=== PATIENT | female | born 1985 | race Caucasian/White ===

== ENCOUNTER 2017-05-01 12:05 | Emergency (ER) | payer OTHER ==
[~2017-05-01] VITALS: Ht 157.5 cm; Wt 90.9 kg
--- NOTE | ~2017-05-01 | CR252 ---
[facility]. [facility] A Service of [facility] & [facility] RADIOLOGY TEXT RESULTS PATIENT: BETY SUBRAMANIAN LOCATION: SED : 89 UNIT #: [id number] AGE: [address]: Ulysses Weiss MD SEX: F ORDER DR: [id number] [place] [id number] E MR#: [id number] #: [id number] NAME: BETY SUBRAMANIAN : 1985 SEX: F STUDY DATE/TIME: 05/01/2017 12:34 UNIT: SED ROOM: STUDY DESCRIPTION: CR Tibia and Fibula 2 Views Lt Attending Physician: Ulysses Weiss M.D. Ordering Physician: Ulysses Weiss M.D. Primary Care Physician: Primary Care Physician No MEDICAL IMAGING REPORT This report is preliminary unless electronic signature is present. EXAM Left tib-fib series INDICATION Left leg laceration after a fall today. PROCEDURE Two views of the left leg. COMPARISON None. FINDINGS Soft tissue laceration along the anterior lower left leg. No acute bone injury. IMPRESSION Laceration along the anterior lower left leg. No acute bone injury. Dictated by... Maverick Pearce M.D. THIS IS AN ELECTRONICALLY VERIFIED REPORT Maverick Pearce M.D. at 05/02/2017 8:15 AM JERILYN/winston TD: 05/01/2017 13:47 JOB #: [id number] MEDICAL IMAGING REPORT Page 1 of 1
[~2017-05-01 12:05] MED LIST: BENADRYL25 M1 PO; BIRTH CONTROL PILL PO; MOTRIN600 M2 PO; REGLAN10 MG PO
[2017-05-01] MEDS ORDERED: NO MEDICATIONS (12:09)
== END 2017-05-01 13:20 | disposition home or self-care (01) ==
LOC: SED 12:05
DX: S81.812A Laceration without foreign body, left lower leg, initial encounter (principal); Z23 Encounter for immunization; W18.39XA Other fall on same level, initial encounter; Y92.830 Public park as the place of occurrence of the external cause
CPT/HCPCS: 12002; 73590; 90471; 90715; 99283